=== PATIENT | female | born 1990 | race American Indian/Alaskan Native ===

== ENCOUNTER 2017-08-16 06:43 | Inpatient (IN) | payer OTHER ==
[2017-08-14 14:05] LABS: HEMATOCRIT 41.5 % (34.6-47.8); HEMOGLOBIN 13.8 g/dL (11.7-16.4); WHITE BLOOD COUNT 9.5 x10^3/uL (3.4-10)
[2017-08-14 14:15] LABS: BLOOD UREA NITROGEN 10 mg/dL (7-18)
[2017-08-14 14:41] LABS: ASPARTATE AMINO TRANSFERASE 11 U/L (15-37); FERRITIN 49.2 ng/mL (8-252); TOTAL IRON BINDING CAPACITY 391 mcg/dL (250-450); TRANSFERRIN 309 mg/dL (200-360)
[~2017-08-16] VITALS: Ht 167.6 cm; Wt 147.3 kg
[~2017-08-16 06:43] MED LIST: METH5TAB6 PO; SERT50TA5 PO
[2017-08-16] MEDS ORDERED: EPINEPHRINE 1 MG/ML, 1ML ONE (07:17)
[2017-08-16] MEDS ORDERED: BUPIVACAINE/PF 0.5% ONE (07:17)
[2017-08-16] MEDS ORDERED: LACTATED RINGERS 1,000 ML IV SCH ×2 (07:31→23:09)
[2017-08-16 07:33] LABS: HCG UR LOT HCG7030192
[2017-08-16] MEDS ORDERED: LIDOCAINE 1%, 2ML ONE (07:36)
[2017-08-16] MEDS ORDERED: SCOPOLAMINE 1MG PATCH TD ONE ×2 (07:37→08:00)
[2017-08-16 07:50] LABS: HCG UR OBC PASS
[2017-08-16] MEDS ORDERED: MIDAZOLAM 1 MG/ML, 2ML ONE (07:59)
[2017-08-16] MEDS ORDERED: FENTANYL PF 100 MCG/2ML ONE ×4 (07:59→10:28)
[2017-08-16] MEDS ORDERED: LIDOCAINE 1%, 2ML SQ PRN (08:00)
[2017-08-16] MEDS ORDERED: PROPOFOL 10 MG/ML, 20ML ONE (08:01)
[2017-08-16] MEDS ORDERED: ROCURONIUM 10 MG/ML ONE (08:02)
[2017-08-16] MEDS ORDERED: CEFAZOLIN 1,000 MG ONE ×3 (08:03)
[2017-08-16] MEDS ORDERED: GLYCOPYRROLATE 0.4 MG/2 ML, 2ML ONE (08:05)
[2017-08-16] MEDS ORDERED: NEOSTIGMINE 1 MG/ML, 10ML ONE (08:05)
[2017-08-16] MEDS ORDERED: DEXAMETHASONE 4 MG/ML, 1ML ONE ×2 (08:06)
[2017-08-16] MEDS ORDERED: ONDANSETRON 2MG/ML, 2ML ONE (08:06)
[2017-08-16] MEDS ORDERED: ACETAMINOPHEN 325 MG TABLET PO PRN (09:00)
[2017-08-16] MEDS ORDERED: PROMETHAZINE 25 MG/ML, 1ML IV PRN (09:00)
[2017-08-16] MEDS ORDERED: hydrALAzine 20 MG/ML, 1ML IV PRN (09:00)
[2017-08-16] MEDS ORDERED: MEPERIDINE/PF 25MG/0.5ML IVPush PRN (09:00)
[2017-08-16] MEDS ORDERED: OXYcodone 5 MG/5 ML ORAL.SOL UDC PO PRN (09:00)
[2017-08-16] MEDS ORDERED: LABETALOL 5MG/ML, 20ML IV PRN (09:00)
[2017-08-16] MEDS ORDERED: ONDANSETRON 2MG/ML, 2ML IVPush PRN (09:00)
[2017-08-16] MEDS ORDERED: PROMETHAZINE 25 MG/ML, 1ML ONE (10:01)
[2017-08-16] MEDS ORDERED: HYDROmorphone 1 MG/ML, 1ML ONE ×2 (10:02→10:28)
[2017-08-16] MEDS: FENTANYL PF 100 MCG/2ML IV PRN ×3 (10:13→10:36)
[2017-08-16] MEDS: HYDROmorphone 1 MG/ML, 1ML IV PRN ×3 (10:13→10:24)
[2017-08-16] MEDS ORDERED: PROMETHAZINE 12.5 MG SUPP PR PRN (10:30)
[2017-08-16] MEDS ORDERED: PHENOL THROAT SPRAY BOTTLE MM PRN (10:30)
[2017-08-16] MEDS ORDERED: DIPHENHYDRAMINE 50 MG/ML, 1ML IV PRN (10:30)
[2017-08-16] MEDS: FAMOTIDINE 20 MG/2 ML IVPush SCH ×2 (10:30→22:06)
[2017-08-16] MEDS ORDERED: LORazepam 2 MG/ML, 1ML IV PRN (10:30)
[2017-08-16] MEDS ORDERED: PROMETHAZINE 25 MG/ML, 1ML IM PRN (10:30)
[2017-08-16] MEDS ORDERED: ENALAPRILAT 1.25 MG/ML, 2ML IV PRN (10:30)
[2017-08-16] MEDS ORDERED: hydrALAzine 20 MG/ML, 1ML IVPush PRN (10:30)
[2017-08-16] MEDS: morphine SULFATE 10 MG/ML, 1ML IVPush PRN ×6 (11:55→17:58)
[2017-08-16 13:41] VITALS: BP 136/83
[2017-08-16] MEDS: LACTATED RINGERS 1,000 ML IV SCH (16:34)
[2017-08-16 16:40] VITALS: BP 124/77
[2017-08-16] MEDS ORDERED: CEFAZOLIN 1,000 MG in DEXTROSE 5% 50 ML IV SCH (17:00)
[2017-08-16] MEDS ORDERED: CEFAZOLIN PMX 2GM/50ML 50 ML IVPB SCH (17:00)
[2017-08-16] MEDS: CEFAZOLIN 2,000 MG in DEXTROSE 5% 50 ML IV SCH (17:58)
[2017-08-16] MEDS: ONDANSETRON 2MG/ML, 2ML IVPush PRN (17:58)
[2017-08-16 19:06] VITALS: BP 132/77
[2017-08-16] MEDS: HYDROcodone/APAP 7.5-325MG/15ML UDC PO PRN (22:20)
[2017-08-17] MEDS: CEFAZOLIN 2,000 MG in DEXTROSE 5% 50 ML IV SCH (00:48)
[2017-08-17 00:52] VITALS: BP 120/76
[2017-08-17] MEDS: ONDANSETRON 2MG/ML, 2ML IVPush PRN (03:29)
[2017-08-17] MEDS: LACTATED RINGERS 1,000 ML IV SCH (03:43)
[2017-08-17] MEDS: morphine SULFATE 10 MG/ML, 1ML IVPush PRN (03:50)
[2017-08-17] MEDS ORDERED: HYDROcodone/APAP 5/325 TABLET PO PRN (04:30)
[2017-08-17] MEDS ORDERED: GABAPENTIN 100 MG CAPSULE PO SCH (05:00)
[2017-08-17 05:41] LABS: HEMATOCRIT 37.7 % (34.6-47.8); HEMOGLOBIN 12.7 g/dL (11.7-16.4); WHITE BLOOD COUNT 13.6 x10^3/uL (3.4-10)
[2017-08-17 06:04] LABS: BLOOD UREA NITROGEN 9 mg/dL (7-18)
[2017-08-17 08:09] VITALS: BP 129/82
[2017-08-17] MEDS: HYDROcodone/APAP 7.5-325MG/15ML UDC PO PRN ×2 (08:16→12:17)
[2017-08-17] MEDS: FAMOTIDINE 20 MG/2 ML IVPush SCH (08:16)
[2017-08-17 13:28] VITALS: BP 127/74
== END 2017-08-17 14:43 | disposition home or self-care (01) | DRG 621 ==
LOC: ORIP 06:43 → 4NOR 11:40 → DCLOUNGE 08-17 14:16
PROVIDERS: ADMIT Thoracic Surgery (Cardiothoracic Vascular Surgery); ATTEND Thoracic Surgery (Cardiothoracic Vascular Surgery)
PROC: 0DB64Z3 Excision of Stomach, Percutaneous Endoscopic Approach, Vertical (ICD-10-PCS; principal; 2017-08-16 09:00)
DX: E66.01 Morbid (severe) obesity due to excess calories (principal); E05.00 Thyrotoxicosis with diffuse goiter without thyrotoxic crisis or storm; F32.9 Major depressive disorder, single episode, unspecified; J45.909 Unspecified asthma, uncomplicated; Z91.018 Allergy to other foods; Z68.43 Body mass index [BMI] 50.0-59.9, adult
CPT/HCPCS: 36415; 71020; 80048; 80053; 80061; 81025; 82040; 82306; 82607; 82728; 82746; 83540; 83550; 83970; 84134; 84425; 84466; 85025; 93005; J0171; J0690; J1100; J1170; J2250; J2405; J2550; J2704; J2710; J3010; J3490; J2270; J7120; S0028

== ENCOUNTER → 2017-10-06 | Outpatient (CLI) | payer OTHER | END | disposition home or self-care (01) | LOC: CFH 09:23 | PROVIDERS: ATTEND Physician Assistant | DX: K21.9 Gastro-esophageal reflux disease without esophagitis (principal); Z98.84 Bariatric surgery status | CPT/HCPCS: 74241 ==